=== PATIENT | male | born 1965 | race Caucasian/White ===

== ENCOUNTER 2022-10-30 12:58 | Emergency (ER) | payer BC, SELFPAY ==
[2022-10-30] VITALS (8 sets, daily range): BP systolic 133–190; BP diastolic 84–103; PULSE 54–66; RESP 16–18; TEMP 36.8; O2SAT 98–100
--- NOTE | ~2022-10-30 | CT_ITS ---
EXAMINATION: CT abdomen pelvis wo/w con DATE: 10/30/2022 14:57 INDICATION: urogram, hematuria/frothy urine, int RLQ/flank pain TECHNIQUE: Computed tomography (CT) of the abdomen and pelvis was performed without and with 100 mL O mnipaque-350 intravenous contrast. Automated exposure control and iterative reconstruction technique were employed. The dose-length product was 1280.37 mGy-cm. COMPARISON: 11/30/2018. FINDINGS: Lower thorax: Lingular and bibasilar scar/atelectasis Liver: Normal. Biliary/Gallbladder: The gallbladder is partially collapsed but otherwise normal in appearance. No bi le duct dilation. Pancreas: No mass or duct dilation. Spleen: Subcentimeter hypodensity, likely cyst or hemangioma. Adrenals:Right adrenal adenoma Kidneys: No mass, stone, or hydronephrosis. GI tract: No small or large bowel dilation. Normal appendix. Diverticulosis without diverticulitis. Mesentery/Peritoneum: No ascites, mass, or free air. Retroperitoneum: No mass. Atherosclerotic abdominal aortic and/or arterial calcifications. Pelvis: 1.2 cm possible bladder wall mass in the right lateral aspect of the inferior urinary bladder . Layering dependent debris in the bladder lumen. The left collecting system is well evaluated and n ormal. The right distal ureter was not filled with contrast but there is no distal ureteral calcifica tion. Soft Tissues: Small uncomplicated fat-containing umbilical and bilateral inguinal hernias. Bones: No acute osseous finding. IMPRESSION: Possible 1.2 cm bladder wall mass in the right lateral aspect of the inferior bladder, consider refer ral for cystoscopy. Layering dependent infectious, crystalline or hemorrhagic debris in the bladder l umen. The distal right ureter did not fill with contrast in the urographic portion of this examinatio n and is therefore incompletely evaluated, but contains no distal stone. Reviewed, dictated and finalized at location [facility]. IMPRESSION: Possible 1.2 cm bladder wall mass in the right lateral aspect of the inferior b ladder, consider referral for cystoscopy. Layering dependent infectious, kevin lline or hemorrhagic debris in the bladder lumen. The distal right ureter did n ot fill with contrast in the urographic portion of this examination and is ther efore incompletely evaluated, but contains no distal stone.
--- NOTE | 2022-10-30 13:38 | ED.MALEGU ---
HPI - Male Genitourinary General Chief complaint: Urogenital-Male Stated complaint: blood in urine Time Seen by Provider: 10/30/22 13:12 Source: patient Mode of arrival: ambulatory Limitations: no limitations History of Present Illness HPI Narrative: Patient is a 57 y/o male who presents to the ED with c/o hematuria. Patient reports having hematuria and frothy urine intermittently over the last 1 week. It has not occurred every day. Patient's did show me a picture of this. It is associated with dysuria when he notices the blood. Patient also reports having intermittent nausea, chills, subjective fever, dull right lower/right-sided abdominal pain, and an episode of right-sided flank pain last night. He has not taken anything for pain. He denies any vomiting, documented fever, diarrhea, constipation, Hx of UTI or kidney stones. Related Data Allergies Allergy/AdvReac Type Severity Reaction Status Date / Time No Known Allergies Allergy Verified 10/30/22 13:05 Review of Systems Review of Systems: CONSTITUTIONAL: See HPI. CARDIOVASCULAR: Denies chest pain. RESPIRATORY: Denies dyspnea. GASTROINTESTINAL: See HPI. GENITOURINARY: See HPI. MUSCULOSKELETAL: See HPI. NEUROLOGIC: Denies headache, numbness, or weakness. All systems reviewed & are unremarkable except as noted in HPI and below PMFSH Past Medical History Medical History Erectile dysfunction HTN (hypertension) Mixed hyperlipidemia Surgical History Surgical History No pertinent past surgical history Family History Family History Mother Family history of lung cancer Patient's mother is Father Patient's father is Social History Social History Smoking status: Heavy tobacco smoker Alcohol intake: current Exam Narrative: GENERAL: Well appearing, well-nourished, non-toxic, in no acute distress. HEAD: Normocephalic, atraumatic. NECK: Supple. No adenopathy, no masses. RESPIRATORY: Airway patent, respirations nonlabored. Clear to auscultation bilaterally, no rales, rhonchi, wheezing. CARDIOVASCULAR: Regular rate and rhythm without murmurs, rubs, or gallops. Radial pulses 2+ and equal bilaterally. ABDOMINAL: Soft, very mild tenderness in right lower/lateral abdomen, nondistended, no hepatosplenomegaly. Normoactive BS. No significant CVA tenderness to percussion. MUSCULOSKELETAL: Moves all extremities. Strength/ROM intact without gross deformities. No tenderness throughout lumbosacral region. No midline spinal tenderness. SKIN: Warm, dry, normal color. No rashes. NEURO: A&O X3. Speech clear. Cranial nerves II-XII grossly intact. Steady gait. No ataxic movements. PSYCHIATRIC: Appropriate mood and affect. Normal interaction. Course Vital Signs Vital signs: Vital Signs Temperature 98.2 F 10/30/22 13:03 Pulse Rate 61 10/30/22 13:03 Respiratory Rate 16 10/30/22 13:03 Blood Pressure 142/84 H 10/30/22 13:03 Pulse Oximetry 100 10/30/22 13:03 Temperature 98.2 F 10/30/22 13:03 Pulse Rate 57 L 10/30/22 14:15 Respiratory Rate 18 10/30/22 14:15 Blood Pressure 137/100 H 10/30/22 14:15 Pulse Oximetry 98 10/30/22 14:15 MDM - Male Genitourinary MDM Narrative Medical decision making narrative: Patient presented to ED with weeklong history of intermittent hematuria, intermittent dull abdominal pain/flank pain. No history of kidney stones or urinary issues. Vitals stable upon arrival. Patient afebrile. CBC without leukocytosis. CMP without significant abnormality, stable kidney function. UA with gross and microscopic blood, no signs of infection. CT scan of abdomen pelvis with and without contrast (urogram) showing possible right bladder wall mass with
[2022-10-30 13:46] LABS: Basophils Absolute Auto 0.1 K/mm3 (0.0-0.1); Basophils Percent Auto 1.2 % (0.2-1.2); Eosinophils Absolute Auto 0.9 K/mm3 (0-0.3); Eosinophils Percent Auto 12.7 % (0-4.4); Hematocrit 43.8 % (42.0-52.0); Hemoglobin 14.7 g/dL (14.0-18.0); Immature Granulocyte Absolute 0.02 K/mm3 (0.00-0.031); Immature Granulocyte Percent A 0.3 % (0-0.5); Lymphocytes Absolute Auto 1.99 K/mm3 (0.9-3.2); Lymphocytes Percent Auto 28.8 % (18.3-44.2); Mean Corpuscular HGB Conc 33.6 g/dl (32-36); Mean Corpuscular Hemoglobin 31.7 pg (26-34); Mean Corpuscular Volume 94.4 fl (80-100); Mean Platelet Volume 9.6 fl (7.4-10.4); Monocytes Absolute Auto 0.5 K/mm3 (0.1-0.6); Monocytes Percent Auto 6.8 % (2.6-8.5); Neutrophils Absolute Auto 3.5 K/mm3 (1.3-6.7); Neutrophils Percent Auto 50.2 % (45.5-73.1); Platelet Count Result 188 k/mm3 (150-375); Red Blood Count 4.64 M/mm3 (4.6-6.20); Red Cell Distribution Width 13.6 % (11.5-14.5); White Blood Count 6.9 K/mm3 (4.5-10.0)
[2022-10-30 13:49] LABS: Appearance Urine Clear (Clear); Bacteria Urine None Seen /hpf; Bilirubin Urine Negative (Negative); Blood Urine 2+ (Negative); Color Urine Yellow (Yellow); Glucose Urine UA Negative (Negative); Ketones Urine Negative (Negative); Leukocyte Esterase Ur Negative LEU/UL (Negative); Nitrate Urine Negative (Negative); Non Pathogenic Casts 0-2; Protein Urine Negative (Negative); RBC Urine 21-50 /hpf (0-2); Specific Grav Ur 1.014 (1.001-1.035); Squamous Epithelial Cell Urine None seen /hpf (Few); Urobilinogen Urine 0.2 mg/dL (<2.0); WBC Urine 0-5 /hpf; pH Urine 5.5 (5.0-9.0)
[2022-10-30 13:50] LABS: Add Urine Microscopic? YES
[2022-10-30 14:01] LABS: Alanine Aminotransferase 49 U/L (6-50); Albumin Level 4.5 g/dL (3.5-5.1); Alkaline Phosphatase 59 U/L (38-126); Anion Gap 6 mmol/L (8-16); Aspartate Amino Transferase 45 U/L (17-59); Bilirubin,Total 0.8 mg/dL (0.2-1.3); Blood Urea Nitrogen 14 mg/dL (9-20); Calcium 9.1 mg/dL (8.4-10.2); Carbon Dioxide 24 mmol/L (22-30); Chloride 106 mmol/L (98-107); Estimated CRCL calculation 94 ml/min; Estimated Glomerular Filt Rate > 60; Glucose 107 mg/dL (65-110); Potassium 4.5 mmol/L (3.4-5.0); Sodium 136 mmol/L (137-145)
[2022-10-30] MEDS: SODIUM CHLORIDE 0.9% IV 1,000 ML 999 ML IV CONT (14:19)
== END 2022-10-30 18:26 | disposition home or self-care (01) ==
PROVIDERS: Emergency Provider Physician Assistant; PCP Emergency Medicine
DX: D41.4 Neoplasm of uncertain behavior of bladder (principal); R31.9 Hematuria, unspecified; R10.31 Right lower quadrant pain; I10 Essential (primary) hypertension; E78.5 Hyperlipidemia, unspecified
CPT/HCPCS: 36415; 74178; 80053; 81001; 85025; 96360; 99284; J7030; Q9967

== ENCOUNTER 2022-11-03 00:43 | Day surgery (SDC) | payer BC, SELFPAY ==
[2022-11-01 11:54] VITALS: BMI 23.5
--- NOTE | 2022-11-01 12:00 | PC.NURSE ---
Report to the Outpatient Waiting Room, entrance under the green pavilion located off [facility], at time 1:00 on date 11/03/22. Planned Procedure Time: 3:00. Time changes happen often and if your time is changed the preop area will call you the afternoon before. - You and your visitor will be asked to self-screen and do not enter if you have any COVID symptoms. - Only one visitor is requested with a max of two and NO children visitors are allowed at this time. - The patient visitor may be requested to leave or wait in car when not with patient due to distancing restrictions. - A mask is optional within the hospital at this time. Patients may have clear liquids (water, carbonated beverages, clear teas, apple juice) until 3 hours prior to surgery with a maximum of 20 ounces. - No food from midnight until time of surgery Take the following medications with a SIP of water the morning of surgery: ATENOLOL DO NOT STOP ANY OF YOUR OTHER PRESCRIPTION MEDICATIONS PRIOR TO SURGERY EXCEPT THE FOLLOWING Medications to discontinue per physician: N/A Date to take last dose: N/A Please no make-up, nail kiswahili, hairspray, perfume, deodorant, or body powder the day of surgery. No jewelry (including any body piercings) or valuables the day of surgery, leave them at home. Please take a shower or bath the night before, or the morning of, surgery with an antibacterial soap. Wear comfortable, loose fitting clothing. - Jewelry must be removed prior to entering the operating room. Rings and piercings that are not removed may be cut off. - The hospital will not accept responsibility for valuables. - Please leave all valuables, including medications, at home the day of surgery. If you are going home after surgery, a licensed drivers license examiner must drive you home. - NO public transportation without another adult if you receive anesthesia. - We recommend that an adult stay with you for 24 hours following discharge. - We also recommend that you do not drive, make important decision, drink alcoholic beverages, or take any drugs that were not prescribed by your health care provider for at least 24 hours after your discharge time. Follow any additional instructions given to you from your surgeon. If you or anyone in your household have experienced Covid symptoms in the past week, please notify your surgeon or the nurse liaison at the phone number below for possible testing. Telephone instructions given to PT - SUBHA RAMOS and asked if any additional questions and then verbalized understanding. Patient advised to call surgeon office or pre surgery nurse liaison [phone] if any additional questions.
[2022-11-03] VITALS (8 sets, daily range): BP systolic 118–161; BP diastolic 78–104; PULSE 59–72; RESP 12–17; TEMP 36.5–37.2; O2SAT 98–100
--- NOTE | ~2022-11-03 | XR_ITS ---
XR retrograde pyelogram RT DATE: 11/03/2022 15:11 INDICATION: Hematuria. Right lower quadrant and flank pain. TECHNIQUE: 25.0 seconds fluoroscopy time 0.19825 mGym2 COMPARISON: 10/30/2022 CT abdomen pelvis FINDINGS: Normal caliber of the right ureter. No stricture or persistent filling defect, abnormal dil atation or hydronephrosis. Normal right renal pelvis and renal collecting structures. IMPRESSION: Negative right retrograde pyelogram Reviewed, dictated and finalized at [facility]. Reviewed, dictated and finalized at location A.
--- NOTE | 2022-11-03 05:57 | WPDHPUPDATE1 ---
History and Physical Update Update Date/Time: 11/03/22 05:57 History and Physical has been reviewed, including an updated exam of the patient. There are NO changes in the patient's condition. Risks, benefits, and alternatives have been discussed and questions answered. Patient agrees to proceed with procedure.
--- NOTE | 2022-11-03 12:46 | ECG_ITS ---
Measurements Intervals [place] Rate: 66 P: 75 WV: 184 QRS: -7 QRSD: 94 T: 62 QT: 382 QTc: 402 Interpretive Statements SINUS RHYTHM RSR' IN V1 OR V2, PROBABLY NORMAL VARIANT BORDERLINE ECG NO PREVIOUS ECG AVAILABLE FOR COMPARISON Electronically Signed On 11-03-2022 13:02:13 CDT by Yehuda Irving D.O.
[2022-11-03] MEDS: LACTATED RINGERS 1,000 ML 30 ML IV CONT (13:20)
--- NOTE | 2022-11-03 13:47 | WPDANESEPPF ---
Anes - Initial Pre Proc Eval Procedure: Operation Date: 11/03/22 15:00 Proposed Procedures p Trans Urethral Resection Bladder Tumor with Gemcitabine Instillation, - Tre Thomas MD s Cystoscopy, Right Retrograde Pyelogram - Tre Thomas MD Date/Time: 11/03/22 13:47 Surgeon: Tre Thomas MD Pre Op Diagnosis: bladder CA Patient Data Age: 57 Gender: M Height: 1.88 m Weight: 82.3 kg Last Vital Signs Temp 37.2 C 11/03/22 12:42 Pulse 72 11/03/22 12:42 Resp 16 11/03/22 12:42 BP 142/95 H 11/03/22 12:42 Pulse Ox 99 11/03/22 12:42 O2 Del Method Room Air 11/03/22 12:42 Allergies Allergy/AdvReac Type Severity Reaction Status Date / Time No Known Allergies Allergy Verified 11/03/22 13:08 Home Medications Medication Instructions Recorded Confirmed Type tramadol 50 mg tablet 50 mg PO Q6H PRN pain #15 tabs 10/30/22 11/03/22 Rx atenolol 50 mg tablet See Rx Instructions .Route 11/02/22 11/03/22 Rx .COMPLEX #90 tabs clobetasol 0.05 % topical cream 1 applic topical BID #15 grams 11/02/22 11/03/22 Rx losartan 50 mg tablet See Rx Instructions .Route 11/02/22 11/03/22 Rx .COMPLEX #90 tabs sildenafil 50 mg tablet (Viagra) See Rx Instructions .Route 11/02/22 11/03/22 Rx .COMPLEX #10 tabs sulfamethoxazole 800 1 tablet PO Q12H #14 tabs 11/02/22 11/03/22 Rx mg-trimethoprim 160 mg tablet (Bactrim DS) Patient hx anesthesia problems: none Family hx anesthesia problems: none Results Review: All pre-operative results and documents have been reviewed as part of the pre-operative evaluation. [facility] Past Medical History Medical History Erectile dysfunction HTN (hypertension) Mixed hyperlipidemia Surgical History Surgical History No pertinent past surgical history Family History Family History Mother Family history of lung cancer Patient's mother is Father Patient's father is Social History Social History Smoking packs per day: 0.5 Smoking cigarettes per day: 10.0 Years smoked: 40 Smoking pack-years: 20.00 Smoking status: Current every day smoker Tobacco type: cigarettes Alcohol intake: current Drinks per week: 20 Alcohol use details: BEER Substance use: never Substance use type: does not use Living arrangements: with family Spiritual care concerns: No Anes - Eval Final PreProcedure Day of Procedure 11/03/22 13:47 Patient weight: normal Heart: regular rate and rhythm Lungs: clear to auscultation Airway: Mallampati scale class II Neurological: alert and oriented Last oral intake: >/= 8 hours ASA classification: III Emergent: no Anesthetic plan: proceed Anesthesia type and monitoring: general GIVS and standard monitoring Results Review: All pre-operative results and documents have been reviewed as part of the pre-operative evaluation. Informed Consent: The patient's anesthetic plan and its attendant risks and benefits were discussed with the patient/family/POA. Questions were solicited and answers provided to the satisfaction of the patient/family/POA.
[2022-11-03] MEDS: ceFAZolin 2 GM/D5W 50 ML 2 GM/50 ML BAG IVPB (14:32)
[2022-11-03] MEDS: LIDOCAINE HCL 2% GEL UROJET 10 ML PKG MUCOUS MEM (14:51)
[2022-11-03] MEDS: SODIUM CHLORIDE 0.9% IV 23.7 ML, GEMCITABINE HCL 1,000 MG BLADDER ×2 (15:02)
--- NOTE | 2022-11-03 15:10 | P.OP_ITS ---
Procedure Note - Detailed Date of Procedure 11/03/22 Pre-op Diagnosis Bladder CA Post-op Diagnosis Same Procedure Performed TURBT (medium, 3-4 cm) Surgeon Tre Thomas MD Anesthesia General Description of Procedure The patient was brought to the operative suite where he is prepped and draped in a routine sterile fashion while in the dorsal lithotomy position. This is done after the uneventful administration of systemic sedation. 2% Xylocaine jelly is introduced intraurethrally and allowed to stand for an appropriate period of time. A 24F resectoscope sheath was placed in the bladder and the bladder is circumferentially inspected carefully. 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 3- 4cm and well away from the right ureteral orifice. Because CT scan of the abdomen and pelvis with and without contrast failed to opacify the distal right ureter I did obtain a right retrograde pyelogram using a 8 F bulb tip catheter. This is perfectly normal without filling defects or obstruction.. The neoplastic area is resected in its entirety with an attempt made to include detrusor muscle for pathological evaluation of invasion. The base and periphery of this resected side is cauterized with a loop electrode. The bladder is emptied and the resectoscope was removed. The patient is taken to the recovery room having tolerated this procedure well. Estimated Blood Loss 0 Drains Yes Packing No Pathology Yes Complications No immediate complications Condition Stable Disposition PACU
--- NOTE | 2022-11-03 15:13 | P.OP_ITS ---
Procedure Note - Detailed Date of Procedure 11/03/22 Pre-op Diagnosis Bladder CA Post-op Diagnosis Same Procedure Performed Gemcitabine installation Surgeon Tre Thomas MD Anesthesia General and None Description of Procedure With the patient in the supine position, a 16F Sterling catheter is placed using st erile technique. Using a protective facemask, gown and double layer of gloves Gemcitabine 2gm in 100cc saline is administered through the catheter/into the bladder. The catheter is then plugged. Patient was instructed to lie supine x20min, then to roll both the left and right x20 min. each. Total dwell time will be 60 min., after which the bladder will be drained and catheter removed. Estimated Blood Loss 0 Drains No Packing No Pathology None sent Complications No immediate complications Condition Stable
[2022-11-03] MEDS: fentaNYL CITRATE INJ (*CRX) 100 MCG/2 ML VIAL 25 MCG IV PUSH ×2 (15:31→15:38)
[2022-11-03] MEDS: SODIUM CHLORIDE 0.9% IV 50 ML BAG 150 ML IRRIGATION (16:08)
== END 2022-11-03 17:02 | disposition home or self-care (01) ==
PROVIDERS: PCP Emergency Medicine; Visit Provider Urology
PROC: 0TBB8ZZ Excision of Bladder, Via Natural or Artificial Opening Endoscopic (ICD-10-PCS; CPT 52235; principal; 2022-11-03 15:00)
PROC: (CPT 52352; 2022-11-03 15:00)
DX: C67.8 Malignant neoplasm of overlapping sites of bladder (principal); I10 Essential (primary) hypertension; E78.2 Mixed hyperlipidemia; F17.210 Nicotine dependence, cigarettes, uncomplicated
CPT/HCPCS: 52235; 51720; 74420; 88305; 88342; 93005; C1758; C1769; J0690; J2405; J2704; J3010; J7120; J9201

== ENCOUNTER 2023-01-19 08:32 | Outpatient (CLI) | payer BC, SELFPAY ==
--- NOTE | ~2023-01-19 | XR_ITS ---
EXAMINATION: XR cystogram DATE: 01/19/2023 09:08 INDICATION: Cancer of overlapping sites of bladder. TECHNIQUE: Water-soluble contrast was gravity-infused through the patient's Sterling catheter. Multiple fluoroscopic images were obtained. Fluoroscopy exposure time was 0.6 minutes. The total number of guanaco ges was 14. COMPARISON: CT abdomen and pelvis 10/30/22 FINDINGS: A Sterling catheter and a suprapubic catheter are noted in the neobladder. There is a small vo lume of contrast leakage at the prostatic urethra. There is bilateral ureteral reflux. There is mild right hydronephrosis. The calyces of left kidney are not well opacified. IMPRESSION: 1. Small volume of contrast leakage at the prosthetic urethra. 2. Bilateral ureteral reflux with mild right hydronephrosis. Reviewed, dictated and finalized at location A.
== END 2023-01-19 08:33 | disposition home or self-care (01) ==
PROVIDERS: PCP Emergency Medicine; Visit Provider Urology
DX: C67.8 Malignant neoplasm of overlapping sites of bladder (principal); N13.70 Vesicoureteral-reflux, unspecified; N13.30 Unspecified hydronephrosis
CPT/HCPCS: 51600; 74430; Q9967

== ENCOUNTER 2023-02-02 10:43 | Outpatient (CLI) | payer BC, SELFPAY ==
--- NOTE | ~2023-02-02 | XR_ITS ---
EXAMINATION: CYSTOGRAM DATE: 02/02/2023 11:17 INDICATION: Cancer of overlapping sites of the bladder post cystectomy and neobladder formation. TECHNIQUE: Initial equipment installation professional radiograph of the pelvis was performed. There was retrograde administration of Omnipaque 350 mixed with saline contrast into patient's existing Sterling catheter. Fluoroscopic guanaco ges of the pelvis were obtained including a postvoid thorascopic image. Fluoroscopy exposure time was 0.7 minutes. A total of 1 overhead radiographs and 28 fluoroscopic images were obtained. Total DAP w as 7.565 Gycm^2 FINDINGS: A Sterling catheter is present within the neobladder. The previously seen suprapubic catheter is no long er visualized. Again seen is extraluminal leakage of a small amount of contrast along the prostatic u rethra. This appears slightly decreased since the prior study. Vesicoureteral reflux seen bilaterally with some chondral stimulating in the bilateral renal collecting systems where there is mild bilater al hydronephrosis. IMPRESSION: 1. Neobladder with slight decrease in a small amount of extraluminal leakage of contrast at the pros tatic urethra. 2. Bilateral vesicoureteral reflux with mild bilateral hydronephrosis. Reviewed, dictated and finalized at location A. IMPRESSION: 1. Neobladder with slight decrease in a small amount of extraluminal leakage o f contrast at the prostatic urethra. 2. Bilateral vesicoureteral reflux with mild bilateral hydronephrosis.
== END 2023-02-02 10:44 | disposition home or self-care (01) ==
PROVIDERS: PCP Emergency Medicine; Visit Provider Urology
DX: C67.8 Malignant neoplasm of overlapping sites of bladder (principal); N13.30 Unspecified hydronephrosis
CPT/HCPCS: 51600; 74430; Q9967

== ENCOUNTER 2024-04-08 00:05 | Day surgery (SDC) | payer BC, SELFPAY ==
[2024-03-20 10:52] VITALS: BMI 20.3
[2024-04-08 09:20] VITALS: BP 124/94; PULSE 87; RESP 18; TEMP 36.3; O2SAT 100
[2024-04-08] MEDS: LACTATED RINGERS 1,000 ML 150 ML IV CONT (09:30)
--- NOTE | 2024-04-08 09:32 | WPDANESEPPF ---
Anes - Initial Pre Proc Eval Procedure: Operation Date: 04/08/24 10:30 Proposed Procedures p Esophagogastroduodenoscopy & Colonoscopy - Shayne Ro MD Date/Time: 04/08/24 09:32 Surgeon: Shayne Ro MD Pre Op Diagnosis: Diarrhea, abnormal wt. loss, Pers. hx. colon polyp Patient Data Age: 59 Gender: M Height: 1.88 m Weight: 71 kg Last Vital Signs Temp 97.4 F L 04/08/24 09:20 Pulse 87 04/08/24 09:20 Resp 18 04/08/24 09:20 BP 124/94 H 04/08/24 09:20 Pulse Ox 100 04/08/24 09:20 O2 Del Method Room Air 04/08/24 09:20 Allergies Allergy/AdvReac Type Severity Reaction Status Date / Time No Known Allergies Allergy Verified 04/08/24 09:19 Home Medications Medication Instructions Recorded Confirmed Type cholecalciferol (vitamin D3) 1,250 1,250 mcg PO WEEKLY #12 caps 09/12/23 04/08/24 Rx mcg (50,000 unit) capsule atenolol 50 mg tablet See Rx Instructions .Route 11/07/23 04/08/24 Rx .COMPLEX #90 tabs Patient hx anesthesia problems: none Family hx anesthesia problems: none Results Review: All pre-operative results and documents have been reviewed as part of the pre-operative evaluation. [facility] Past Medical History Medical History (Updated 03/08/24 @ 13:27 by Ginny Castillo MA) Abdominal bloating BRBPR (bright red blood per rectum) Diarrhea Dysuria Elevated LFTs Erectile dysfunction Essential (primary) hypertension Fatigue Hematuria History of colon polyps HTN (hypertension) Internal hemorrhoids Mixed hyperlipidemia Nausea Nicotine dependence, unspecified, uncomplicated Numerous moles Other hyperlipidemia Pure hyperglyceridemia Right lower quadrant abdominal pain Screening PSA (prostate specific antigen) Vitamin D deficiency Surgical History Surgical History (Updated 03/08/24 @ 13:27 by Ginny Castillo MA) Hx of total cystectomy No pertinent past surgical history Family History Family History Mother Family history of lung cancer Patient's mother is Father Patient's father is Social History Social History Smoking packs per day: 1 Smoking cigarettes per day: 20.0 Years smoked: 40 Smoking pack-years: 40.00 Smoking status: Current every day smoker Tobacco type: cigarettes Alcohol intake: current Drinks per week: 2 Alcohol use details: STOPPED DRINKING BEER, DRINKS WINE OR SHOTS OCCASIONALLY Substance use: never Substance use type: does not use Lack of Transportation: No Lack of Food: Never True Current Housing: I Have Housing Concerned About Future Housing: No Difficulty Paying Gas/Electric Bills: No Difficulty Paying for Meds: No Currently Unemployed: No Education: Associate Degree Difficulty w/ Childcare or Family Care: No Living arrangements: with family Spiritual care concerns: No Anes - Eval Final PreProcedure Day of Procedure 04/08/24 09:32 Patient weight: normal Heart: regular rate and rhythm Lungs: clear to auscultation Airway: Mallampati scale class II Neurological: alert and oriented Last oral intake: >/= 8 hours ASA classification: III Emergent: no Anesthetic plan: proceed Anesthesia type and monitoring: general GIVS and standard monitoring Results Review: All pre-operative results and documents have been reviewed as part of the pre-operative evaluation. Informed Consent: The patient's anesthetic plan and its attendant risks and benefits were discussed with the patient/family/POA. Questions were solicited and answers provided to the satisfaction of the patient/family/POA.
--- NOTE | 2024-04-08 09:39 | PM.HPGS ---
History of Present Illness History of Present Illness Consent: Risks, benefits, and alternatives have been discussed and questions answered. Patient agrees to proceed with procedure. Chief complaint: Diarrhea, abnormal wt. loss, Pers. hx. colon polyp Narrative: John Beal is a 59 year old male with past medical surgical history of bladder cancer s/p radical cystoprostatectomy with neobladder creation using small bowel in 2021, Frequent UTIs multiple times a year for which he is on abx, he has been having diarrhea but last 3-4 weeks doing much better. Serology for celiac negative, no EPI. Also had nausea but that has improved, last colonoscopy 2018 with polyp. Review of Systems Review of Systems: All systems reviewed & are unremarkable except as noted in HPI and below PMFSH Past Medical History Medical History (Updated 03/08/24 @ 13:27 by Ginny Castillo MA) Abdominal bloating BRBPR (bright red blood per rectum) Diarrhea Dysuria Elevated LFTs Erectile dysfunction Essential (primary) hypertension Fatigue Hematuria History of colon polyps HTN (hypertension) Internal hemorrhoids Mixed hyperlipidemia Nausea Nicotine dependence, unspecified, uncomplicated Numerous moles Other hyperlipidemia Pure hyperglyceridemia Right lower quadrant abdominal pain Screening PSA (prostate specific antigen) Vitamin D deficiency Surgical History Surgical History (Updated 03/08/24 @ 13:27 by Ginny Castillo MA) Hx of total cystectomy No pertinent past surgical history Family History Family History Mother Family history of lung cancer Patient's mother is Father Patient's father is Social History Social History Smoking packs per day: 1 Smoking cigarettes per day: 20.0 Years smoked: 40 Smoking pack-years: 40.00 Smoking status: Current every day smoker Tobacco type: cigarettes Alcohol intake: current Drinks per week: 2 Alcohol use details: STOPPED DRINKING BEER, DRINKS WINE OR SHOTS OCCASIONALLY Substance use: never Substance use type: does not use Lack of Transportation: No Lack of Food: Never True Current Housing: I Have Housing Concerned About Future Housing: No Difficulty Paying Gas/Electric Bills: No Difficulty Paying for Meds: No Currently Unemployed: No Education: Associate Degree Difficulty w/ Childcare or Family Care: No Living arrangements: with family Spiritual care concerns: No Meds Home Medications and Allergies Home Medications Medication Instructions Recorded Confirmed Type cholecalciferol (vitamin D3) 1,250 1,250 mcg PO WEEKLY #12 caps 09/12/23 04/08/24 Rx mcg (50,000 unit) capsule atenolol 50 mg tablet See Rx Instructions .Route 11/07/23 04/08/24 Rx .COMPLEX #90 tabs Allergies Allergy/AdvReac Type Severity Reaction Status Date / Time No Known Allergies Allergy Verified 04/08/24 09:19 Vital Signs Vital Signs - 24 hr 04/08/24 09:20 Temperature 97.4 F L Pulse Rate 87 Respiratory Rate 18 Blood Pressure 124/94 H Pulse Oximetry 100 Oxygen Delivery Room Air Exam Const: General: comfortable and no acute distress HENMT: Face/Nose/Sinus: Normal nares present Eyes: General: appearance normal, both eyes and all related structures Neck: Neck: no JVD Resp: Auscultation: clear to auscultation bilaterally Cardio: Rate: regular rate Rhythm: regular rhythm GI: Inspection: non-distended GI Palp: Yes Soft to palpation Skin: General skin exam: normal color Neuro: General: gait normal Speech: normal speech Extrem: General: normal to inspection Psych: Mental Status: mental status grossly normal Assessment and Plan Assessment and plan (1) History of colon polyps: Code(s): Z86.010 - Personal history of colonic polyps Status: Acute
--- NOTE | 2024-04-08 09:54 | SUR.OPER ---
EGD end time: 948, Colonoscopy start time: 952
[2024-04-08 10:06] VITALS: BP 111/81; PULSE 72; RESP 30; O2SAT 100
[2024-04-08 10:16] VITALS: BP 110/77; PULSE 73; RESP 22; O2SAT 99
[2024-04-08 10:26] VITALS: BP 126/89; PULSE 67; RESP 20; O2SAT 100
== END 2024-04-08 10:35 | disposition home or self-care (01) ==
PROVIDERS: PCP Emergency Medicine; Referring Provider Nurse Practitioner Family; Visit Provider Internal Medicine Gastroenterology
PROC: 0DJ08ZZ Inspection of Upper Intestinal Tract, Via Natural or Artificial Opening Endoscopic (ICD-10-PCS; CPT 43235; principal; 2024-04-08 10:30)
DX: D12.4 Benign neoplasm of descending colon (principal); D12.0 Benign neoplasm of cecum; K64.8 Other hemorrhoids; I10 Essential (primary) hypertension; E78.49 Other hyperlipidemia; R73.9 Hyperglycemia, unspecified; E55.9 Vitamin D deficiency, unspecified; N52.9 Male erectile dysfunction, unspecified; F17.210 Nicotine dependence, cigarettes, uncomplicated; Z98.890 Other specified postprocedural states; Z85.51 Personal history of malignant neoplasm of bladder; Z80.1 Family history of malignant neoplasm of trachea, bronchus and lung
CPT/HCPCS: 43239; 45380; 45385; 88305; J2704; J7120

== ENCOUNTER 2024-05-13 07:44 | Outpatient (CLI) | payer BC, SELFPAY ==
--- NOTE | ~2024-05-13 | US_ITS ---
Limited Abdominal Sonogram: Real-time sonographic imaging of the right upper quadrant was performed. Clinical History: Abnormal blood chemistry findings Findings: The liver appears normal with no evidence of bile duct dilatation. There is a 9 mm echogen ic mass in the right hepatic lobe, most likely hemangioma. Main portal vein demonstrates normal direc tion of flow. The gallbladder is well distended, and appears normal with no evidence of gallstone or wall thickening. The common bile duct measures 3 mm. The visualized pancreas, aorta, and IVC are unr emarkable. Impression: 9 mm echogenic right hepatic lobe mass, most likely small hemangioma. Consider pre and postcontrast M R to attempt to more definitively characterize this lesion. Reviewed, dictated and finalized at location M. Impression: 9 mm echogenic right hepatic lobe mass, most likely small hemangioma. Consider pre and postcontrast MR to attempt to more definitively characterize this sage mejia
== END 2024-05-13 07:45 | disposition home or self-care (01) ==
PROVIDERS: PCP Emergency Medicine; Visit Provider Nurse Practitioner Family
DX: R16.0 Hepatomegaly, not elsewhere classified (principal); R79.89 Other specified abnormal findings of blood chemistry
CPT/HCPCS: 76705

== ENCOUNTER 2024-06-04 06:48 | Outpatient (CLI) | payer BC, SELFPAY ==
--- NOTE | ~2024-06-04 | MR_ITS ---
EXAMINATION: MR abdomen wo/w con DATE: 06/04/2024 07:41 INDICATION: Liver disease, unspecified. Liver mass. TECHNIQUE: Magnetic resonance imaging (MRI) of the abdomen was performed without and with 15 mL Multi Nicole intravenous contrast. COMPARISON: Abdomen ultrasound 05/13/2024, 11/30/18 FINDINGS: There is a 9 mm hyperenhancing mass in the liver without washout. The spleen, gallbladder, pancreas, adrenal glands, and kidneys are normal. Partially visualized is a neobladder. There are no pathologic ally enlarged lymph nodes. There is no ascites. IMPRESSION: 1. 9 mm hyperenhancing liver mass, most likely a hemangioma or focal nodular hyperplasia. Metastatic disease cannot be excluded. Consider abdomen MRI without and with contrast in 6 months. Reviewed, dictated and finalized at location A. IMPRESSION: 1. 9 mm hyperenhancing liver mass, most likely a hemangioma or focal nodular hy perplasia. Metastatic disease cannot be excluded. Consider abdomen MRI without and with contrast in 6 months.
== END 2024-06-04 06:49 | disposition home or self-care (01) ==
PROVIDERS: PCP Emergency Medicine; Visit Provider Nurse Practitioner Family
DX: R16.0 Hepatomegaly, not elsewhere classified (principal); R79.89 Other specified abnormal findings of blood chemistry; R93.2 Abnormal findings on diagnostic imaging of liver and biliary tract
CPT/HCPCS: 74183; A9577

== ENCOUNTER 2025-03-09 20:17 | Emergency (ER) | payer BC, SELFPAY ==
[2025-03-09] VITALS (9 sets, daily range): BP systolic 123; BP diastolic 90; PULSE 80–97; RESP 13–19; TEMP 36.9; O2SAT 96–100
--- NOTE | ~2025-03-09 | XR_ITS ---
EXAM: XR forearm LT 2V DATE: 03/09/2025 20:58 HISTORY: fall/MEDIAL CONTUSION/PT DENIES ANY PAIN . COMPARISON: None available. FINDINGS: Normal mineralization. No fracture or dislocation. No lytic or blastic lesion. Joint space s are maintained. Minimal olecranon enthesopathy. No erosion or periosteal change. Soft tissues withi n normal limits. IMPRESSION: No acute osseous finding in the left forearm. Reviewed, dictated and finalized at location K.
--- NOTE | ~2025-03-09 | XR_ITS ---
EXAM: XR ankle LT min 3V DATE: 03/09/2025 20:58 HISTORY: fall/LATERAL CONTUSION/PT DENIES ANY PAIN . COMPARISON: None available. FINDINGS: Normal mineralization. No fracture or dislocation. 6 mm lytic focus in the distal tibia. M ild scattered degenerative change. Mild Achilles and plantar enthesopathy. Chronic ossification/enthe sopathy along the short segment portion of the syndesmosis. No erosion or periosteal change. Soft tis sues within normal limits. IMPRESSION: No acute fracture or dislocation in the left ankle. 6 mm lytic lesion in the distal tibia, correlate for clinical history of multiple myeloma or metastat ic disease. Consider bone scanning.. Reviewed, dictated and finalized at location K. IMPRESSION: No acute fracture or dislocation in the left ankle. 6 mm lytic lesion in the distal tibia, correlate for clinical history of multip le myeloma or metastatic disease. Consider bone scanning..
--- NOTE | ~2025-03-09 | CT_ITS ---
EXAMINATION: CT chest abdomen pelvis w con DATE: 03/10/2025 07:41 CDT INDICATION: Status post fall from height. TECHNIQUE: Computed tomography (CT) of the chest, abdomen, and pelvis was performed with 100 cc Omnip aque 350 intravenous contrast. The dose-length product was 463.84 mGy-cm. Automated exposure control and iterative reconstruction technique were employed. COMPARISON: None FINDINGS: CHEST CT: No significant pleural or pericardial effusion. Heart size normal. No significant vascular abnormalit y. No lymphadenopathy. No focal airspace consolidation. There is a pleural-based nodule in the left l ower lobe posteriorly measuring 5 mm. No endobronchial lesions. No pneumothorax. There is emphysema. ABDOMEN/PELVIS CT: Fatty infiltration of the liver. The spleen, pancreas, adrenal glands are unremarkable. There is bila teral hydronephrosis with ectopic insertion of the ureters. The bladder is distended with bladder div erticulum at the dome of the bladder where the ureters insert. There are calcifications at this level , possibly ureteral and bladder stones. There is mild urothelial enhancement. Cannot exclude ascendin g urinary tract infection. Bladder is distended. Moderate mid thoracic spondylosis with accentuated k yphosis. Moderate spondylosis at L5-S1. IMPRESSION: 1. 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 Cannot exclu de ascending urinary tract infection. 2: No acute abnormality of the chest, abdomen or pelvis. Reviewed, dictated and finalized at location B. IMPRESSION: 1. Bilateral hydronephrosis with urothelial enhancement and ectopic insertion o f the ureters near the dome of the bladder adjacent to an irregular shaped dive rticulum which contains stones. Cannot exclude ascending urinary tract infectio n. 2: No acute abnormality of the chest, abdomen or pelvis.
--- OUTSIDE RECORDS SUMMARY | 2025-03-09 20:18 | XMS_ITS | Clinical Summary ---
Author Organization [facility] Address [address] [place] [address] Care Team Providers Care Tong Carrier Name Role Phone None, Provider MD Primary Care Provider Unavaila ble Allergies No known active allergies Medications atenolol (TENORMIN) 50 MG tablet Take 1 tablet (50 mg total) by mouth daily. Active apixaban (ELIQUIS) 2.5 MG tablet Take 1 tablet (2.5 mg total) by mouth 2 (two) times daily. Active clobetasol (TEMOVATE) 0.05 % cream Apply topically 2 (two) times daily. Active Active Problems Problem Noted Date Diagnosed Date History of bladder cancer 02/09/2023 Bacteremia due to Pseudomonas 02/08/2023 Complicated UTI (urinary tract infection) 2022 Family History Medical History Relation Comments Cancer Brother 1 Cancer Father Cancer Mother Cancer Sister Relation Status Comments Brother 1 Brother 2 Alive Brother 3 Alive Daughter Alive Father Mother Sister Son 1 Alive Son 2 Alive Social History Tobacco Use Types Packs/Day Years Used Date Smoking Tobacco: Former Cigarettes Smokeless Tobacco: Never Tobacco Cessation:Counseling Given: No Alcohol Use Standard Drinks/Week Comments Not Currently 0 (1 standard drink = 0.6 oz pur e alcohol) Humiliation, Afraid, Rape, and Kick questionnair e Answer Date Recorded Within the last year, have y ou been afraid of your partner or ex-partner? No 01/25/2023 Within the last year, have y ou been humiliated or emotionally abused in other ways by your partner or ex-partner? No Within the last year, have y ou been kicked, hit, slapped, or otherwise physically hurt by your partner or ex-partner? No 01/25/2023 Within the last year, have y ou been raped or forced to have any kind of sexual activity by your partner or ex-partner? No 01/25/2023 Overall Financial Resource Strain (CARDIA) Answe r Date Recorded How hard is it for you to pa y for the very basics like food, housing, medical care, and heating? Not hard at all 01/25/2023 PHQ-2 Answer Date Recorded Patient Health Questionnaire-2 Score 0 02/08/2023 [facility] Occupat ional Health - Occupational Stress Questionnaire Answer Date Recorded Do you feel stress - tense, restless, nervous, or anxious, or unable to sleep at night because your mind is troubled all the time - these days? Not at all 01/25/2023 Exercise Vital Sign Answer Date Recorde d On average, how many days pe r week do you engage in moderate to strenuous exercise (like a brisk walk)? 0 days 01/25/2023 On average, how many minutes do you engage in exercise at this level? 0 min 01/25/2023 Hunger Vital Sign Answer Date Recorded Within the past 12 months, y ou worried that your food would run out before you got the money to buy more. Never true 01/26/20 23 Within the past 12 months, t he food you bought just didn't last and you didn't have money to get more. Never true 01/25/2023 PRAPARE - Transportation Answer Date Re corded In the past 12 months, has l ack of transportation kept you from medical appointments or from getting medications? No 01/12 In the past 12 months, has l ack of transportation kept you from meetings, work, or from getting things needed for daily living? No 01/25/2023 Housing Stability Vital Sign Answer Chris e Recorded In the last 12 months, was t here a time when you were not able to pay the mortgage or rent on time? No 01/25/2023 In the last 12 months, how many places have you lived? 1 01/25/2023 In the last 12 months, was t here a time when you did not have a steady place to sleep or slept in a group home (including now)? No 01/25/2023 Sex and Gender Information Value Date Recorded Sex Assigned at Not on file Legal Sex Male 9:15 PM CDT Gender Identity Not on file Sexual Orientation Not on file Last Filed Vital Signs Vital Sign Reading Time Taken Comments Blood Pressure 112/85 01/27/2023 4:39 PM CDT Pulse 81 01/27/2023 4:39 PM CDT Temperature 37 C (98.6 F) 01/27/2023 4:39 PM CDT Respiratory Rate 18 01/27/2023 4:39 PM CDT Oxygen Saturation 100% 01/27/2023 4:39 PM CDT Inhaled Oxygen Concentration - - Weight 77.6 kg (171 lb) 02/08/2023 11:04 AM CDT Height 188 cm (6' 2) 02/08/2023 11:04 AM CDT Body Mass Index 21.96 02/08/2023 11:04 AM CDT Plan of Treatment Health Maintenance Due Date Last Done Comments Colorectal Cancer Screening Colonoscopy (10 Years) 1966 Annual Physical 1969 Hepatitis C 01/29/1984 DTaP, Tdap and Td Vaccines ( 1 - Tdap) 1985 Pneumococcal Vaccine: 50+ Ye ars (1 of 1 - PCV) 01/29/2016 Zoster Vaccines (1 of 2) 01/29/2016 COVID-19 Vaccine ( - 2023-2 5 season) 2024 Meningococcal B Vaccine Aged Out No l onger eligible based on patient's age to complete this topic Meningococcal Vaccine Aged Out No claus sunny eligible based on patient's age to complete this topic RSV Immunizations Under 20 Months Aged Out No longer eligible based on patient's age to complete this topic Goals Goal Patient Goal Type Associated Problems Recent Progress Patient-Stated? Author Family - family caregiver with be involved in care transitions and discharge planning Lifestyle No Monik Lujan, TEMPORARY OFFICE ASSISTANTcustom[place] [address] [facility] Advance Directives * Full Code (Latest Code Status on File) Date Activated Date Inactivated Comments 01/25/2023 2:20 AM 01/27/2023 10:02 PM Care Teams Tong Carrier Relationship Specialty Start Date End Date None, Provider, MD PCP - General UNKNOWN PHYSICIAN SPECIALTY 01/24/23
--- OUTSIDE RECORDS SUMMARY | 2025-03-09 20:18 | XMS_ITS | Clinical Summary ---
Author Organization [facility] Address [address] [place] [address] Care Team Providers Care Granite Block Paver Name Role Phone Glynn Cruz MD Primary Care Provide r Cr Holguin MD Unavailable [phone] Allergies No known active allergies Medications atenoloL (TENORMIN) 50 mg tablet Take 1 tablet (50 mg total) by mouth daily Active apixaban (ELIQUIS) 2.5 mg tabletIndication s:VTE Prophylaxis Take 1 tablet (2.5 mg total) by mouth 2 (two) times a day 60 tablet 3 Active acetaminophen 500 mg capsuleIndicatio ns:Pain Take 2 capsules (1,000 mg total) by mouth every 6 (six) hours 30 tablet 3 Active losartan (COZAAR) 50 mg tablet Take 1 tablet (50 mg total) by mouth daily 01/25/20 23 Discontinu ed(Other) Active Problems Problem Noted Date Diagnosed Date Cancer of lateral wall of urinary bladder 2022 Cancer of overlapping sites of bladder 3 Surgical History Surgery Date Site/Laterality Comments TRANSURETHRAL RESECTION OF BLADDER TUMOR Medical History Medical History Date Comments Tobacco use HTN (hypertension) A-fib (HCC) last episode pavan und 10 years ago, controlled on beta leisa Internal hemorrhoid Social History Tobacco Use Types Packs/Day Years Used Date Smoking Tobacco: Every Day Cigarettes OASIS D0700: Social Isolation Answer Da te Recorded Frequency of experiencing loneliness or isolatio n Never 02/10/2023 OASIS A1250: Transportation Answer Date Recorded Lack of Transportation (Medical) No 02/10/2023 Lack of Transportation (Non-Medical) No 02/10/2023 Patient Unable or Declines to Respond No 02/10/2023 OASIS B1300: Health Literacy Answer Chris e Recorded Frequency of needing help to read materials from doctor or pharmacy Never 02/10/2023 Social Connection and Isolat ion Panel [NHANES] Answer Date Recorded In a typical week, how many times do you talk on the phone with family, friends, or neighbors? More than three times a week 12/27/2022 How often do you get togethe r with friends or relatives? Twice a week 12/27/2022 How often do you attend chur ch or anglican services? Never 12/27/2022 Do you belong to any clubs o r organizations such as adventism groups, unions, fraternal or athletic groups, or school groups? No 12/27/2022 How often do you attend meet ings of the clubs or organizations you belong to? Never 12/27/2022 Are you , , di vorced, , never , or living with a partner? 12/27/2022 AUDIT-C Answer Date Recorded Q1: How often do you have a drink containing alcohol? 4 or more times a week 12/19/2022 Q2: How many drinks containi ng alcohol do you have on a typical day when you are drinking? 5 or 6 Q3: How often do you have si x or more drinks on one occasion? Weekly 12/19/2022 Overall Financial Resource Strain (CARDIA) Answe r Date Recorded How hard is it for you to pa y for the very basics like food, housing, medical care, and heating? Not hard at all 12/27/2022 PRAPARE - Transportation Answer Date Re corded In the past 12 months, has l ack of transportation kept you from medical appointments or from getting medications? No 12/12 In the past 12 months, has l ack of transportation kept you from meetings, work, or from getting things needed for daily living? No 12/27/2022 Personal Safety Answer Date Recorded Have you ever been in or are you currently in a harmful physical or emotional relationship or is someone making you feel afraid or unsafe? Denies 12/26/2022 Sex and Gender Information Value Date Recorded Sex Assigned at Not on file Legal Sex Male 6:51 AM CDT Gender Identity Not on file Sexual Orientation Not on file Obstetrics History Last Filed Vital Signs Vital Sign Reading Time Taken Comments Blood Pressure 120/88 02/10/2023 4:29 PM CDT Pulse 78 02/10/2023 4:29 PM CDT Temperature 36.4 C (97.5 F) 02/10/2023 4:29 PM CDT Respiratory Rate 16 02/10/2023 4:29 PM CDT Oxygen Saturation 100% 02/10/2023 4:29 PM CDT Inhaled Oxygen Concentration - - Weight 75.8 kg (167 lb) 02/10/2023 4:29 PM CDT Height 188 cm (6' 2) 02/10/2023 4:29 PM CDT Body Mass Index 21.44 02/10/2023 4:29 PM CDT Plan of Treatment Health Maintenance Due Date Last Done Comments Colon Cancer Screening-Colonoscopy 1966 Depression Screening 1966 Hepatitis C Screening 1966 Prostate Cancer Screening-PSA 1966 DTaP/Tdap/Td Vaccine (1 - Tdap) 1977 Hepatitis B Screening 01/29/1984 Regular Well Visit/Exam 18-64 01/29/1984 Pneumococcal vaccine <65 (1 of 2 - PCV) 1985 Zoster Vaccine (1 of 2) 01/29/2016 Influenza Vaccine (#1) 2025 Medical Devices Implanted Type Area Hotel Staff Member Device Identifier Shelf Expiration Date Model / Serial / Lot [employer] Marito 7fr 80cm Open Tip Luer Lock Adapter Guidewire Graduate Straight Latex Free 160-210 - [id number] Implanted:Qty: 2 on 12/26/2022 by Cr Holguin MD at [facility] Stent Bilateral: Ureter [employer] Marito 09/07/2026 160-210 / / [id number] [employer] Weck Hem-O-Tata Ligate Nonabsorbable Cartridge Large Chevron Heart Latex Free [id number] - [id number] Implanted:Qty: 1 on 12/26/2022 by Cr Holguin MD at [facility] N/A: Pelvis [employer] [id number] / / [employer] Weck Hem-O-Tata Ligate Nonabsorbable Cartridge Large Chevron Heart Latex Free [id number] - [id number] Implanted:Qty: 1 on 12/26/2022 by Cr Holguin MD at [facility] N/A: Pelvis [employer] [id number] / / Insurance [employer] CHOICE [employer] ANTHEM ACCESS CHOICE Advance Directives For more information, please contact: [phone] * Full Code (Latest Code Status on File) Date Activated Date Inactivated Comments 12/26/2022 6:44 PM 12/31/2022 5:01 PM Care Teams Granite Block Paver Relationship Specialty Start Date End Date Glynn Cruz MD [address] [place] [address] PCP - General Emergency Medicine 12/19/22 [place] [address] [place] [address] Consulting Physician Urology 12/31/22
--- OUTSIDE RECORDS SUMMARY | 2025-03-09 20:18 | XMS_ITS | Referral Summary ---
Author Organization [facility] Address [address] [place] [address] Care Team Providers Care Credit Associate Name Role Phone Glynn Cruz MD Primary Care Provide r Cr Holguin MD Unavailable [phone] Allergies No known active allergies Medications [...] Cancer of overlapping sites of bladder 3 Social History Tobacco Use Types Packs/Day Years [...] often do you attend chur ch or islam services? Never 12/27/2022 Do you belong to any clubs o r organizations such as denominational groups, unions, fraternal or athletic groups, or [...] 02/10/2023 4:29 PM CDT Plan of Treatment Not on file Medical Devices Implanted Type Area Lumber Tallier Device Identifier Shelf Expiration Date Model / Serial / Lot [employer] Marito 7fr 80cm Open Tip Luer Lock Adapter Guidewire Graduate Straight Latex Free 160-210 - [id number] Implanted:Qty: 2 on 12/26/2022 by Cr Holguin MD at [facility] Stent Bilateral: Ureter [employer] Marito 09/07/2026 160-210 / / [id number] [employer] Weck Hem-O-Tata Ligate Nonabsorbable Cartridge Large Chevron Heart Latex Free [id number] - [id number] Implanted:Qty: 1 on 12/26/2022 by Cr Holguin MD at [facility] N/A: Pelvis [employer] [id number] / / [employer] Weck Hem-O-Tata Ligate Nonabsorbable Cartridge Large Chevron Heart Latex Free [id number] - [id number] Implanted:Qty: 1 on 12/26/2022 by Cr Holguin MD at [facility] N/A: [employer] [id number] / / Insurance [facility] ACC[facility] CHOICE [employer] ACCESS CHOICE [employer] ACCESS CHOICE Advance Directives For more information, please contact: [phone] * Full Code (Latest Code Status on File) Date Activated Date Inactivated Comments 12/26/2022 6:44 PM 12/31/2022 5:01 PM Care Teams Credit Associate Relationship Specialty Start Date End Date Glynn Cruz MD [address] [place] [address] PCP - General Emergency Medicine 12/19/22 [place] [address] [place] [address] Consulting Physician Urology 12/31/22
--- OUTSIDE RECORDS SUMMARY | 2025-03-09 20:51 | XMS_ITS | Referral Summary ---
Author Organization [facility] Address [address] [place] [address] Care Team Providers Care Industrial Aerial Installer Name Role Phone Glynn Cruz MD Primary Care Provide r Cr Holguin MD Unavailable [phone] Allergies No known active allergies Medications [...] often do you attend chur ch or protestant services? Never 12/27/2022 Do you belong to any clubs o r organizations such as confucianist groups, unions, fraternal or athletic groups, or [...] on file Medical Devices Implanted Type Area Clinical Laboratory Medical Director Device Identifier Shelf Expiration Date Model / Serial / Lot [employer] Marito 7fr 80cm Open Tip Luer Lock Adapter Guidewire Graduate Straight Latex Free 160-210 - [id number] Implanted:Qty: 2 on 12/26/2022 by Cr Holguin MD at [facility] Stent Bilateral: Ureter [employer] Marito 09/07/2026 160-210 / / [id number] [employer] Weck Hem-O-Tata Ligate Nonabsorbable Cartridge Large Chevron Heart Latex Free [id number] - [id number] Implanted:Qty: 1 on 12/26/2022 by Cr Holguin MD at [facility] N/A: Pel[employer] [id number] / / [employer] Weck Hem-O-Tata Ligate Nonabsorbable Cartridge Large Chevron Heart Latex Free [id number] - [id number] Implanted:Qty: 1 on 12/26/2022 by Cr Holguin MD at [facility] N/A: Pel[employer] [id number] / / Insurance [facility] ACCESS CHOICE ANTH[employer] ACCESS CHOICE [employer] ACCESS CHOICE Advance Directives For more information, please contact: [phone] * Full Code (Latest Code Status on File) Date Activated Date Inactivated Comments 12/26/2022 6:44 PM 12/31/2022 5:01 PM Care Teams Industrial Aerial Installer Relationship Specialty Start Date End Date Glynn Cruz MD [address] [place] [address] PCP - General Emergency Medicine 12/19/22 [place] [address] [place] [address] Consulting Physician Urology 12/31/22
--- OUTSIDE RECORDS SUMMARY | 2025-03-09 20:51 | XMS_ITS | Clinical Summary ---
Author Organization [facility] Address [address] [place] [address] Care Team Providers Care Mobile Battery Technician Name Role Phone None, Provider MD Primary [...] Recorded Patient Health Questionnaire-2 Score 0 02/08/2023 [facility] Occupat ional Health - Occupational Stress [...] place to sleep or slept in a retirement (including now)? No 01/25/2023 Sex and Gender [...] and discharge planning Lifestyle No Monik Lujan, SALESPERSON [place] [address] [facility] Advance Directives * Full Code (Latest Code Status on File) Date Activated Date Inactivated Comments 01/25/2023 2:20 AM 01/27/2023 10:02 PM Care Teams Mobile Battery Technician Relationship Specialty Start Date End Date None, Provider, MD PCP - General UNKNOWN PHYSICIAN SPECIALTY 01/24/23
--- OUTSIDE RECORDS SUMMARY | 2025-03-09 20:51 | XMS_ITS | Clinical Summary ---
Author Organization [facility] Address [address] [place] [address] Care Team Providers Care Sawmill Production Worker Name Role Phone Glynn Cruz MD Primary Care Provide r Cr Holguin MD Unavailable [phone] Allergies No known active allergies Medications [...] often do you attend chur ch or buddhist services? Never 12/27/2022 Do you belong to any clubs o r organizations such as quaker groups, unions, fraternal or athletic groups, or [...] (#1) 2025 Medical Devices Implanted Type Area Tin Pourer Device Identifier Shelf Expiration Date Model / Serial / Lot [employer] Marito 7fr 80cm Open Tip Luer Lock Adapter Guidewire Graduate Straight Latex Free 160-210 - [id number] Implanted:Qty: 2 on 12/26/2022 by Cr Holguin MD at [facility] Stent Bilateral: Ureter [employer] Marito 09/07/2026 160-210 / / [id number] [employer] Weck Hem-O-Tata Ligate Nonabsorbable Cartridge Large Chevron Heart Latex Free [id number] - [id number] Implanted:Qty: 1 on 12/26/2022 by Cr Holguin MD at [facility] N/A: Pelvis Teleflex [employer] Inc [id number] / / Teleflex [employer] Inc Weck Hem-O-Tata Ligate Nonabsorbable Cartridge Large Chevron Heart Latex Free [id number] - [id number] Implanted:Qty: 1 on 12/26/2022 by Cr Holguin MD at [facility] N/A: Pelvis [employer] Inc [id number] / / Insurance [employer] CHOICE [employer] ANTHEM ACCESS CHOICE Advance Directives For more information, please contact: [phone] * Full Code (Latest Code Status on File) Date Activated Date Inactivated Comments 12/26/2022 6:44 PM 12/31/2022 5:01 PM Care Teams Sawmill Production Worker Relationship Specialty Start Date End Date Glynn Cruz MD [address] [place] [address] PCP - General Emergency Medicine 12/19/22 [place] [address] [place] [address] Consulting Physician Urology 12/31/22
[2025-03-09 20:53] LABS: Hematocrit 43.6 % (42.0-52.0); Hemoglobin 14.4 g/dL (14.0-18.0); Immature Granulocyte Percent A 0.2 % (0-0.5); Lymphocytes Absolute Auto 4.00 K/mm3 (0.9-3.2); Mean Corpuscular HGB Conc 33.0 g/dl (32-36); Mean Corpuscular Hemoglobin 33.5 pg (26-34); Mean Corpuscular Volume 101.4 fl (80-100); Nucleated Red Blood Cells Absolute Auto 0.000 K/mm3 (0.0-0.012); Nucleated Red Blood Cells Perc 0.0 % (0.0-0.2); Platelet Count Result 158 k/mm3 (150-375); Red Blood Count 4.30 M/mm3 (4.6-6.20); White Blood Count 8.6 K/mm3 (4.5-10.0)
[2025-03-09 21:06] LABS: INR 1.1; Prothrombin Time 13.8 Seconds (11.1-14.7)
[2025-03-09 21:07] LABS: Partial Thromboplastin Time 23.9 Seconds (22.3-36.8)
[2025-03-09 21:25] LABS: Alanine Aminotransferase 64 U/L (6-50); Albumin Level 4.4 g/dL (3.5-5.1); Alkaline Phosphatase 90 U/L (38-126); Anion Gap 11 mmol/L (4-12); Aspartate Amino Transferase 69 U/L (17-59); Bilirubin,Total 0.7 mg/dL (0.2-1.3); Blood Urea Nitrogen 13 mg/dL (9-20); Calcium 9.5 mg/dL (8.4-10.2); Carbon Dioxide 14 mmol/L (22-30); Chloride 110 mmol/L (98-107); Estimated CRCL calculation 61 ml/min; Estimated Glomerular Filt Rate > 60; Glucose 129 mg/dL (65-110); Potassium 3.1 mmol/L (3.4-5.0); Sodium 135 mmol/L (137-145); Total Protein 8.2 g/dL (6.3-8.2)
[2025-03-09] MEDS: ONDANSETRON INJ 4 MG/2 ML VIAL IV PUSH (21:51)
[2025-03-09] MEDS: MORPHINE SULFATE (*CRX) 4 MG/ML INJ IV PUSH (21:51)
[2025-03-09 21:54] LABS: Magnesium 2.1 mg/dL (1.6-2.3)
--- NOTE | 2025-03-09 21:56 | ED_ITS ---
HPI - Fall General Chief Complaint: Fall Stated Complaint: fall, thinks ribs are broken Time Seen by Provider: 03/09/25 20:34 Source: patient Mode of arrival: ambulatory Limitations: no limitations History of Present Illness HPI Narrative: This is a 60 year old male that presents to the ER after a fall. Reports he was standing on top of a cooler and fell backwards onto a desk. Reports landing on the left side of his back. He did not hit his head or lose consciousness. Reports left rib pain/back pain. He is not on a blood thinner. Denies vision changes, vomiting, numbness, weakness. Related Data Allergies Allergy/AdvReac Type Severity Reaction Status Date / Time No Known Allergies Allergy Verified 03/09/25 20:47 Review of Systems 2 Review of Systems: All systems reviewed & are unremarkable except as noted in HPI and below PMFSH Past Medical History Medical History Elevated ferritin Low ceruloplasmin level Liver lesion, right lobe Elevated LFTs History of colon polyps Nausea Diarrhea Fatigue Screening PSA (prostate specific antigen) Vitamin D deficiency Right lower quadrant abdominal pain Pure hyperglyceridemia Other hyperlipidemia Numerous moles Nicotine dependence, unspecified, uncomplicated Internal hemorrhoids Essential (primary) hypertension BRBPR (bright red blood per rectum) Abdominal bloating Dysuria Hematuria Mixed hyperlipidemia HTN (hypertension) Erectile dysfunction Surgical History Surgical History Hx of total cystectomy No pertinent past surgical history Family History Family History Mother Family history of lung cancer Patient's mother is Father Patient's father is Social History Social History Smoking packs per day: 1 Smoking cigarettes per day: 20.0 Years smoked: 40 Smoking pack-years: 40.00 Smoking status: Current every day smoker Tobacco type: cigarettes Alcohol intake: current Drinks per week: 2 Alcohol use details: STOPPED DRINKING BEER, DRINKS WINE OR SHOTS OCCASIONALLY Substance use: never Substance use type: does not use Do You Feel Safe in your Home?: Yes Lack of Transportation: No Lack of Food: Never True Current Housing: Decline to Answer Concerned About Future Housing: Decline to Answer Difficulty Paying Gas/Electric Bills: Decline to Answer Difficulty Paying for Meds: Decline to Answer Currently Unemployed: Decline to Answer Education: Decline to Answer Difficulty w/ Childcare or Family Care: Decline to Answer Living arrangements: with family Spiritual care concerns: No Exam 2 Narrative: GENERAL: Well-appearing, well-nourished, and in no acute distress. HEAD: Normocephalic, atraumatic. EYES: PERRLA and EOMI. ENT: Nares clear, no rhinorrhea or epistaxis. Mucous membranes moist. Oropharynx without tonsillar hypertrophy exudate or other lesions. Bilateral TMs pearly shankar non-bulging NECK: Supple. No adenopathy or masses. No midline spinal tenderness CHEST: Clear to auscultation. No respiratory distress. No wheezes rales or rhonchi HEART: Regular rate and rhythm. No murmur heard. Normal peripheral pulses. ABDOMEN: Soft, nontender, nondistended, normal active bowel sounds. BACK: No midline spinal tenderness EXTREMITIES: Normal range of motion. No edema. SKIN: Warm, dry, no rash. NEURO: No focal deficits. Alert and oriented x3. PSYCH: Normal mood and affect Course Course Emergency Course: Patient updated on his workup and agrees with plan of care Vital Signs Vital signs: Vital Signs Temperature 98.4 F 03/09/25 20:28 Pulse Rate 97 03/09/25 20:28 Respiratory Rate 16 03/09/25 20:28 Blood Pressure 123/90 03/09/25 20:28 Pulse Oximetry 100 03/09/25 20:28 Oxygen Delivery Room Air 03/09/25 20:28 Temperature 98.4 F 03/09/25 20:28 Pulse Rate 80 03/10/25 00:00 Respiratory Rate 16 03/10/25 00:00 Blood Pressure 123/90 03/09/25 20:28 Pulse Oximetry 97 03/09/25 23:45 Oxygen Delivery Room Air 03/09/25 20:28 MDM - Fall MDM Narrative Medical decision making narrative: Patient presents emergency department after a fall today with left-sided rib/back pain. His vitals are stable. He is neurologically intact. He did not hit his head or lose consciousness. Contusions noted to the left forearm and ankle. X-rays are without acute osseous abnormalities. He does incidentally have a lytic lesion in his distal tibia. CT chest/abdomen/pelvis without pulmonary contusion or pneumothorax. No acute fractures. No traumatic visceral injury. Patient was updated on his workup and agrees with plan of care. He is to follow up with primary provider. He was given warnings to return to the ER Differential Diagnosis Differential diagnosis: Likely other (Spine fracture, rib fracture, rib contusion, intra-abdominal trauma, intrathoracic trauma) Lab Data Attestation: I reviewed the patient's lab results. 03/09/25 20:46 03/09/25 20:46 Labs: Lab Results 03/09/25 Range/Units 20:46 WBC 8.6 (4.5-10.0) K/mm3 RBC 4.30 L (4.6-6.20) M/mm3 Hgb 14.4 (14.0-18.0) g/dL Hct 43.6 (42.0-52.0) % MCV 101.4 H (80-100) fl MCH 33.5 (26-34) pg MCHC 33.0 (32-36) g/dl RDW 15.8 H (11.5-14.5) % Plt Count 158 (150-375) k/mm3 MPV 9.9 (7.4-10.4) fl Immature Gran % (Auto) 0.2 (0-0.5) % Neut % (Auto) 32.6 L (45.5-73.1) % Lymph % (Auto) 46.4 H (18.3-44.2) % [place] % (Auto) 5.9 (2.6-8.5) % Eos % (Auto) 13.7 H (0-4.4) % Baso % (Auto) 1.2 (0.2-1.2) % Lymph # (Auto) 4.00 H (0.9-3.2) K/mm3 [place] # (Auto) 0.5 (0.1-0.6) K/mm3 Eos # (Auto) 1.2 H (0-0.3) K/mm3 Baso # (Auto) 0.1 (0.0-0.1) K/mm3 Abs Immat Gran (auto) 0.02 (0.00-0.031) K/mm3 Absolute Neuts (auto) 2.8 (1.3-6.7) K/mm3 Absolute Nucleated RBC 0.000 (0.0-0.012) K/mm3 Nucleated RBC % 0.0 (0.0-0.2) % PT 13.8 (11.1-14.7) Seconds INR 1.1 APTT 23.9 (22.3-36.8) Seconds Sodium 135 L (137-145) mmol/L Potassium 3.1 L (3.4-5.0) mmol/L Chloride 110 H (98-107) mmol/L Carbon Dioxide 14 L (22-30) mmol/L Anion Gap 11 (4-12) mmol/L BUN 13 (9-20) mg/dL Creatinine 1.19 (0.7-1.3) mg/dL Estim Creat Clear Calc 61 ml/min Estimated GFR > 60 (59 - ) Glucose 129 H (65-110) mg/dL Calcium 9.5 (8.4-10.2) mg/dL Magnesium 2.1 (1.6-2.3) mg/dL Total Bilirubin 0.7 (0.2-1.3) mg/dL AST 69 H (17-59) U/L ALT 64 H (6-50) U/L Alkaline Phosphatase 90 (38-126) U/L Total Protein 8.2 (6.3-8.2) g/dL Albumin 4.4 (3.5-5.1) g/dL Imaging Data Radiologist's impression: CT chest/abdomen/pelvis: No pulmonary contusion pneumothorax. No acute fractures. No traumatic visceral injury. ITS Impressions Ankle X-Ray 03/09/25 21:54 IMPRESSION: No acute fracture or dislocation in the left ankle. 6 mm lytic lesion in the distal tibia, correlate for clinical history of multiple myeloma or metastatic disease. Consider bone scanning.. Forearm X-Ray 03/09/25 21:58 IMPRESSION: No acute osseous finding in the left forearm. Critical Care Time Critical Care Time Critical Care Time: No Discharge Plan Discharge Clinical Impression: Hypokalemia, Lytic lesion of bone on x-ray Closed rib fracture Qualifiers: Encounter type: initial encounter Rib fracture type: single rib Laterality: l eft Qualified Code(s): S22.32XA - Fracture of one rib, left side, initial encounter for closed fracture Patient Disposition: Home Condition: Stable Instructions: Rib Fracture (ED), Hypokalemia (ED) Additional Instructions: Return to the emergency department if you experience fever, chest pain, shortness of breath, abdominal pain with nausea and vomiting, weakness, numbness, or any other symptoms that are concerning to you. Rest. Ice to the area. Over the counter pain medication as needed. Prescribed pain medication as needed Follow up with your primary care doctor Incidentally the radiologist sees an abnormality at the end of your tibia for which he is recommending a bone scan Patient Language: Serbian Prescriptions: New hydrocodone-acetaminophen 5-325 mg tablet 1 tablet PO Q6H PRN (Reason: pain) Qty: 20 0RF No Action cholecalciferol (vitamin D3) 1,250 mcg (50,000 unit) capsule 1,250 mcg PO WEEKLY Qty: 12 3RF atenolol 50 mg tablet See Rx Instructions .ROUTE .COMPLEX Qty: 90 2RF Dose Instruction: TAKE 1 TABLET BY MOUTH EVERY DAY Rx Instructions: TAKE 1 TABLET BY MOUTH EVERY DAY Follow-up/Referrals: Glynn Cruz MD [Primary Care Provider] -
--- NOTE | 2025-03-09 21:57 | PC.NURSE ---
Patient taken to CT via stretcher while on monitor.
[2025-03-10] VITALS: PULSE 80; RESP 16
[2025-03-10] MEDS: HYDROcodone/acetaminophen (*CRX) 5-325 MG TABLET 1 TAB PO (00:02)
[2025-03-10] MEDS: POTASSIUM CHLORIDE 20 MEQ ER TABLET 40 MEQ PO (00:03)
== END 2025-03-10 00:26 | disposition home or self-care (01) ==
PROVIDERS: Emergency Provider Physician Assistant; PCP Emergency Medicine
DX: S22.32XA Fracture of one rib, left side, initial encounter for closed fracture (principal); E87.6 Hypokalemia; M89.9 Disorder of bone, unspecified; I10 Essential (primary) hypertension; E55.9 Vitamin D deficiency, unspecified; E78.2 Mixed hyperlipidemia; F17.210 Nicotine dependence, cigarettes, uncomplicated; Z86.0100 Personal history of colon polyps, unspecified; Z79.899 Other long term (current) drug therapy; W17.89XA Other fall from one level to another, initial encounter
CPT/HCPCS: 36415; 71260; 73090; 73610; 74177; 80053; 83735; 85025; 85610; 85730; 96374; 96375; 99284; A9270; J2270; J2405; Q9967

== ENCOUNTER 2025-04-09 09:51 | Outpatient (CLI) | payer BC, SELFPAY ==
--- OUTSIDE RECORDS SUMMARY | 2025-04-09 09:00 | XMS_ITS | Encounter Summary ---
Author Organization [facility] Address [address] [place] [address] Care Team Providers Care Bottle Label Inspector Name Role Phone Unavailable Primary Care Provider Unavailabl e Encounter Details Date Type Department Care Team (Late st Contact Info) Description 04/09/2025 9:00 AM CDT Office Visit [facility] Oncology and Hematology - [place] [address] [place] [address] Beatris Freeman MD [address] [place] [address] Social History Tobacco Use Types Packs/Day Years Used Date Smoking Tobacco: Every Day Cigarettes 0.5 40 Started: 04/09/1985 Smokeless Tobacco: Never Tobacco Cessation:Ready to Q uit: Not Asked; Counseling Given: Not Answered Alcohol Use Standard Drinks/Week Comments Yes 0 (1 standard drink = 0.6 oz pur e alcohol) Occasionally Sex and Gender Information Value Date Recorded Sex Assigned at Not on file Legal Sex Male 10:48 AM CDT Gender Identity Not on file Sexual Orientation Not on file documented as of this encounter Last Filed Vital Signs Vital Sign Reading Time Taken Comments Blood Pressure 130/92 04/09/2025 8:50 AM CDT Pulse 67 04/09/2025 8:48 AM CDT Temperature 36.5 C (97.7 F) 04/09/2025 8:48 AM CDT Respiratory Rate 15 04/09/2025 8:48 AM CDT Oxygen Saturation 98% 04/09/2025 8:48 AM CDT Inhaled Oxygen Concentration - - Weight 71.6 kg (157 lb 12.8 oz) 04/09/2025 8:48 AM CDT Height 188 cm (6' 2) 04/09/2025 8:48 AM CDT Body Mass Index 20.26 04/09/2025 8:48 AM CDT documented in this encounter Plan of Treatment Upcoming Encounters Date Type Department Care Team (Late st Contact Info) Description 05/06/2025 11:15 AM CDT Office Visit [facility] Oncology and Hematology [facility] [address] [facility] [address] [place] [address] Myron Coffey MD [address] [place] [address] documented as of this encounter Visit Diagnoses Not on filedocumented in this encounter
[2025-04-09 10:13] LABS: Hematocrit 45.3 % (42.0-52.0); Hemoglobin 14.9 g/dL (14.0-18.0); Immature Granulocyte Percent A 0.3 % (0-0.5); Lymphocytes Absolute Auto 2.27 K/mm3 (0.9-3.2); Mean Corpuscular HGB Conc 32.9 g/dl (32-36); Mean Corpuscular Hemoglobin 33.8 pg (26-34); Mean Corpuscular Volume 102.7 fl (80-100); Nucleated Red Blood Cells Absolute Auto 0.000 K/mm3 (0.0-0.012); Nucleated Red Blood Cells Perc 0.0 % (0.0-0.2); Platelet Count Result 181 k/mm3 (150-375); Red Blood Count 4.41 M/mm3 (4.6-6.20); White Blood Count 7.6 K/mm3 (4.5-10.0)
--- OUTSIDE RECORDS SUMMARY | 2025-04-09 10:14 | XMS_ITS | Clinical Summary ---
Author Organization [facility] Fadycat Morgan Address [address] [place] [address] Care Team Providers Care Client Care Specialist Name Role Phone Unavailable Primary Care Provider Unavailabl e Allergies No known active allergies Medications nitrofurantoin (MACROBID) 100 mg capsule Take 1 Capsule by mouth 2 times daily. 03/26/2025 Active atenoloL (TENORMIN) 50 mg tablet Take 50 mg by mouth daily. Active Encounters Date Type Department Care Team Description 04/09/2025 9:00 AM CDT Office Visit [facility] Oncology and Hematology [facility] [address] [place] [address] Beatris Freeman MD 04/09/2025 Orders Only [facility] Oncology and [facility] [address] [place] [address] Beatris Freeman MD Disorder of bone density and structure, unspecified (Primary Dx) from Last 3 Months Family History Medical History Relation Name Comments Lung Cancer Brother 1 No Known Problems Brother 2 No Known Problems Brother 3 No Known Problems Child 1 No Known Problems Child 2 No Known Problems Child 3 Melanoma Father Heart Disease Mother Lung Cancer Mother Brain Cancer Sister Relation Name Status Comments Brother 1 Brother 2 Alive Brother 3 Alive Child 1 Alive Child 2 Alive Child 3 Alive Father Mother Sister Social History Tobacco Use Types Packs/Day Years [...] Mass Index 20.26 04/09/2025 8:48 AM CDT Plan of Treatment Upcoming Encounters Date Type Department Care Team (Late st Contact Info) Description 05/06/2025 11:15 AM CDT Office Visit [facility] Oncology and Hematology - [place] [address] [facility] [address] [place] [address] Myron Coffey MD [address] [facility] [address] [place] [address] Health Maintenance Due Date Last Done Comments DTAP/TDAP/TD VACCINES (1 - Tdap) 1985 HEPATITIS B VACCINES (1 of 3 - 19+ 3-dose series) 01/12 COLORECTAL SCREENING 2011 Colorectal Cancer Screening 2011 FIT-DNA Q 3 years 2011 FIT/FOBT Q 1 year 2011 Flex Sig/CT Colonography Q 5 years 2011 Lung Cancer Screening 01/29/2016 ZOSTER VACCINE (1 of 2) 01/29/2016 Preventative Visit- Commercial 08/14/2024 INFLUENZA VACCINE (#1) 2025 Insurance [facility] BLUE ACCESS CHOICE [facility]
--- OUTSIDE RECORDS SUMMARY | 2025-04-09 10:14 | XMS_ITS | Clinical Summary ---
Author Organization [facility] Address [address] [place] [address] Care Team Providers Care Youth Corrections Officer Name Role Phone Glynn Cruz MD Primary Care Provide r Cr Holguin MD Unavailable [phone] Allergies No known active allergies Medications [...] or pharmacy Never 02/10/2023 Social Connection and Isolation Panel Answer Date Recorded In a typical week, how many times do you talk on the phone with family, friends, or neighbors? More than three times a week 12/27/2022 How often do you get togethe r with friends or relatives? Twice a week 12/27/2022 How often do you attend chur ch or nondenominational services? Never 12/27/2022 Do you belong to any clubs o r organizations such as zoroastrianism groups, unions, fraternal or athletic groups, or [...] (#1) 2025 Medical Devices Implanted Type Area Crematorium Operator Device Identifier Shelf Expiration Date Model / Serial / Lot [employer] Marito 7fr 80cm Open Tip Luer Lock Adapter Guidewire Graduate Straight Latex Free 160-210 - [id number] Implanted:Qty: 2 on 12/26/2022 by Cr Holguin MD at [facility] Stent Bilateral: Ureter [employer] Marito 09/07/2026 160-210 / / [id number] [employer] Weck Hem-O-Tata Ligate Nonabsorbable Cartridge Large Chevron Heart Latex Free [id number] - [id number] Implanted:Qty: 1 on 12/26/2022 by Cr Holguin MD at [facility] N/A: Pelvis [employer] [id number] / / [employer] Weck Hem-O-Tata Ligate Nonabsorbable Cartridge Large Chevron Heart Latex Free [id number] - [id number] Implanted:Qty: 1 on 12/26/2022 by Cr Holguin MD at [facility] N/A: Pelvis [employer] [id number] / / Insurance [employer] [place]ICE [employer] [place] [address] [employer] ACCESS CHOICE Advance Directives For more information, please contact: [phone] * Full Code (Latest Code Status on File) Date Activated Date Inactivated Comments 12/26/2022 6:44 PM 12/31/2022 5:01 PM Care Teams Youth Corrections Officer Relationship Specialty Start Date End Date Glynn Cruz MD [address] [place] [address] PCP - General Emergency Medicine 12/19/22 [place] [address] [place] [address] Consulting Physician Urology 12/31/22
--- OUTSIDE RECORDS SUMMARY | 2025-04-09 10:14 | XMS_ITS | Encounter Summary ---
Author Organization [facility] [employer] [facility] Address [address] [place] [address] Care Team Providers Care Leather Worker Name Role Phone Unavailable Primary Care Provider Unavailabl e Encounter Details Date Type Department Care Team (Late Contact Info) Description 04/09/2025 Orders Only [facility] Oncology and Hematology [facility] [address] [place] [address] Beatris Freeman MD [address] [place] [address] Disorder of bone density and structure, unspecified (Primary Dx) Social History Tobacco Use Types Packs/Day Years Used Date Smoking Tobacco: Every Day Cigarettes 0.5 40 Started: 04/09/1985 Smokeless Tobacco: Never Alcohol Use Standard Drinks/Week Comments Yes 0 (1 standard drink = 0.6 oz pur e alcohol) Occasionally Sex and Gender Information Value Date Recorded Sex Assigned at Not on file Legal Sex Male 10:48 AM CDT Gender Identity Not on file Sexual Orientation Not on file documented as of this encounter Plan of Treatment Upcoming Encounters Date Type Department Care Team (Late st Contact Info) Description 05/06/2025 11:15 AM CDT Office Visit [facility] Oncology and Hematology - [place] [address] [place] [address] Myron Coffey MD [address] [facility] [address] [place] [address] Scheduled Orders Name Type Priority Associated Diagnoses Orde r Schedule VITAMIN B12 AND FOLATE Lab Routine Disorder of bone density and structure, unspecified Expected: 04/09/2025, Expires: 04/09/2026 IRON, TIBC, AND PERCENT SATURATION Lab Routine Disorder of bone density and structure, unspecified Expected: 04/09/2025, Expires: 04/09/2026 PROTEIN ELECTROPHORESIS W/REFLEX,SERUM Lab Routine Disorder of bone density and structure, unspecified Expected: 04/09/2025, Expires: 04/09/2026 CBC WITH DIFFERENTIAL Lab Routine Disorder of bone density and structure, unspecified Expected: 04/09/2025, Expires: 04/09/2026 COMPREHENSIVE METABOLIC PANEL Lab Stat Disorder of bone density and structure, unspecified Expected: 04/09/2025, Expires: 04/09/2026 IMMUNOGLOBULINS IGG IGA IGM Lab Routine Disorder of bone density and structure, unspecified Expected: 04/09/2025, Expires: 04/09/2026 KAPPA/LAMBDA, FREE LIGHT CHAINS Lab Routine Disorder of bone density and structure, unspecified Expected: 04/09/2025, Expires: 04/09/2026 documented as of this encounter Visit Diagnoses Diagnosis Disorder of bone density and structure, unspecified- Primary documented in this encounter
[2025-04-09 11:15] LABS: Alanine Aminotransferase 74 U/L (6-50); Albumin Level 4.5 g/dL (3.5-5.1); Alkaline Phosphatase 145 U/L (38-126); Anion Gap 11 mmol/L (4-12); Aspartate Amino Transferase 111 U/L (17-59); Bilirubin,Total 0.6 mg/dL (0.2-1.3); Blood Urea Nitrogen 18 mg/dL (9-20); Calcium 9.5 mg/dL (8.4-10.2); Carbon Dioxide 17 mmol/L (22-30); Chloride 109 mmol/L (98-107); Estimated Glomerular Filt Rate > 60; Glucose 107 mg/dL (65-110); Iron 138 ug/dL (49-181); Potassium 4.3 mmol/L (3.4-5.0); Sodium 137 mmol/L (137-145); Total Protein 8.5 g/dL (6.3-8.2)
[2025-04-09 11:22] LABS: Immunoglobulin A 534 mg/dL (70-400); Immunoglobulin G 1314 mg/dL (700-1600); Immunoglobulin M 88 mg/dL (40-230)
[2025-04-09 11:25] LABS: Percent Iron Saturation 39 % (20-50)
[2025-04-09 12:26] LABS: Vitamin B12 176.0 pg/mL (239-931)
[2025-04-10 16:08] LABS: Free Lambda Lt Chains, Serum 21.3 mg/L (5.7-26.3); Kappa/Lambda Ratio, Serum 1.30 (0.26-1.65)
[2025-04-11 14:08] LABS: Albumin 3.8 g/dL (2.9-4.4); Alpha-1-Globulin 0.2 g/dL (0.0-0.4); Alpha-2-Globulin 1.0 g/dL (0.4-1.0); Gamma Globulin 1.1 g/dL (0.4-1.8)
== END 2025-04-09 09:52 | disposition home or self-care (01) ==
LOC: ANHLAB 09:52
PROVIDERS: PCP Emergency Medicine; Visit Provider Internal Medicine
DX: D64.9 Anemia, unspecified (principal); M85.9 Disorder of bone density and structure, unspecified
CPT/HCPCS: 36415; 80053; 82607; 82746; 82784; 83521; 83540; 83550; 84155; 84165; 85025

== ENCOUNTER 2025-05-13 12:37 | Outpatient (CLI) | payer BC, SELFPAY ==
--- NOTE | ~2025-05-13 | PE_ITS ---
EXAMINATION: PET skull to mid thigh DATE: 05/13/2025 15:20 INDICATION: Lytic lesion at the left tibia on prior radiographs. TECHNIQUE: Blood glucose level was 95 mg/dL. 9.061 mCi of 18-fluorodeoxyglucose (18-FDG) was administered i.v. Low dose computed tomography (CT) images were acquired from the base of the brain to the proximal thighs for attenuation correction and anatomic localization. Positron emission tomography (PET) images were acquired in the same distribution beginning 58 minutes after injection. Images including fused PET/CT images were reconstructed in axial, coronal, and sagittal planes. Automated exposure control technique was employed. The dose- length product was 1070.09mGy-cm. COMPARISON: CT chest, abdomen and pelvis dated 03/09/2025 FINDINGS: Head/neck: There is symmetric increased activity in the oral cavity, palatine tonsils, laryngeal muscles and ocular muscles without CT correlate, likely physiologic. No pathologically enlarged cervical lymphadenopathy or suspicious foci of increased FDG uptake in the visualized head or neck. Chest: Mild emphysema. No suspicious pulmonary nodules, pneumonia, pulmonary edema or pleural effusion. Heart size is normal. No pericardial effusion. Fusiform aneurysm of the ascending thoracic aorta measuring up to 4.5 cm in maximal diameter. No pathologically enlarged or FDG avid thoracic lymphadenopathy. Abdomen/pelvis/proximal thighs: Physiologic renal accumulation and excretion of FDG activity in the kidneys, bladder and along portions of ureters. Normal degree and heterogenous pattern of increased uptake throughout the liver without radiologic correlate or dominant FDG avid lesion. The gallbladder, pancreas, spleen and bilateral adrenal glands are normal. Mild uptake scattered throughout the bowels without radiologic correlate, also likely physiologic. No other abnormal foci of increased FDG uptake or pathologically enlarged lymphadenopathy in the abdomen, pelvis or proximal thighs. Musculoskeletal: Mild increased uptake and interval development of callus formation associated with several now subacute healing left-sided rib fractures including the posterior left 10th and 11th and 12th ribs and the lateral left 9th, 10th and 11th ribs. There is mild diffuse increased uptake along the bilateral abductor longus muscle bellies without radiologic correlate which is likely physiologic. Mild uptake overlying the bilateral greater trochanters consistent with mild trochanteric bursitis. There is a subtle small lytic lesion involving the cortex at the posterior lateral aspect of the distal left tibial metaphysis without evident FDG uptake. No other suspicious lytic, blastic or abnormally FDG avid bone lesions. Tiny focus of mild uptake along the skin surface at the proximal right forearm without radiologic correlate likely related to skin contamination. IMPRESSION: 1. No abnormal FDG uptake associated with a nonspecific very small lytic lesion at the posterolateral metaphyseal region of the distal left tibia. 2. Mild uptake associated with a few healing subacute left rib fractures likely related to fall for which CT scan was obtained on 03/09/2025. No other suspicious lytic, blastic or abnormally FDG avid bone lesions. 3. Fusiform ascending thoracic aortic aneurysm measuring up to 4.5 cm. Reviewed, dictated and finalized at location A. IMPRESSION: 1. No abnormal FDG uptake associated with a nonspecific very small lytic lesion at the posterolateral metaphyseal region of the distal left tibia. 2. Mild uptake associated with a few healing subacute left rib fractures likely related to fall for which CT scan was obtained on 03/09/2025. No other suspicio us lytic, blastic or abnormally FDG avid bone lesions. 3. Fusiform ascending thoracic aortic aneurysm measuring up to 4.5 cm.
--- OUTSIDE RECORDS SUMMARY | 2025-05-13 12:43 | XMS_ITS | Clinical Summary ---
Author Organization [facility] Address [address] [place] [address] Care Team Providers Care Tool Drawing Checker Name Role Phone Glynn Cruz MD Primary Care Provide r Cr Holguin MD Unavailable [phone] Allergies No known active allergies Medications [...] often do you attend chur ch or sabianism services? Never 12/27/2022 Do you belong to any clubs o r organizations such as amish groups, unions, fraternal or athletic groups, or [...] (#1) 2025 Medical Devices Implanted Type Area Board Operator Device Identifier Shelf Expiration Date Model / Serial / Lot [employer] Marito 7fr 80cm Open Tip Luer Lock Adapter Guidewire Graduate Straight Latex Free 160-210 - [id number] Implanted:Qty: 2 on 12/26/2022 by Cr Holguin MD at [facility] Stent Bilateral: Ureter [employer] Marito 09/07/2026 160-210 / / [id number] [employer] Weck Hem-O-Tata Ligate Nonabsorbable Cartridge Large Chevron Heart Latex Free [id number] - [id number] Implanted:Qty: 1 on 12/26/2022 by Cr Holguin MD at [facility] N/A: Pelvis [employer] [id number] / / [employer] Weck Hem-O-Tata Ligate Nonabsorbable Cartridge Large Chevron Heart Latex Free [id number] - [id number] Implanted:Qty: 1 on 12/26/2022 by Cr Holguin MD at [facility] N/A: Pel[employer] [id number] / / Insurance [employer] CHO[employer] [place] [address] AN[employer] ACCESS CHOICE Advance Directives For more information, please contact: [phone] * Full Code (Latest Code Status on File) Date Activated Date Inactivated Comments 12/26/2022 6:44 PM 12/31/2022 5:01 PM Care Teams Tool Drawing Checker Relationship Specialty Start Date End Date Glynn Cruz MD [address] [place] [address] PCP - General Emergency Medicine 12/19/22 [place] [id number] [place] [address] Consulting Physician Urology 12/31/22
--- OUTSIDE RECORDS SUMMARY | 2025-05-13 12:43 | XMS_ITS | Clinical Summary ---
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 03/26/2025 Active atenoloL (TENORMIN) 50 mg tablet Take 50 mg by mouth daily. Active Active Problems No known active problems Encounters Date Type Department Care Team Description 05/06/2025 11:15 AM CDT Office Visit [facility] Oncology and Hematology [facility] [address] [place] [address] Myron Coffey MD Lytic lesion of bone on x-ray (Primary Dx); Anemia due to vitamin B12 deficiency, unspecified B12 deficiency type 04/16/2025 External Device Data STL ABSTRACTION Provider, Abstract 04/15/2025 External Device Data STL ABSTRACTION Provider, Abstract 04/15/2025 External Device Data STL ABSTRACTION Provider, Abstract 04/09/2025 9:00 AM CDT Office Visit [facility] Oncology and Hematology [facility] [address] [facility] [place] [address] Beatris Freeman MD Lytic lesion of bone on x-ray (Primary Dx) 04/09/2025 Orders Only [facility] Oncology and [facility] [address] [facility] [place] [address] Beatris Freeman MD Disorder of bone density [...] Date Smoking Tobacco: Every Day Cigarettes 0.5 40.1 Started: 04/09/1985 Smokeless Tobacco: Never Tobacco Cessation:Ready to Q uit: No; Counseling Given: Not Answered Alcohol Use Standard Drinks/Week Comments Yes 0 (1 standard drink = 0.6 oz pur e alcohol) Occasionally Sex and Gender Information Value Date Recorded Sex Assigned at Not on file Legal Sex Male 10:48 AM CDT Gender Identity Not on file Sexual Orientation Not on file Last Filed Vital Signs Vital Sign Reading Time Taken Comments Blood Pressure 139/94 05/06/2025 11:28 AM CDT Pulse 86 05/06/2025 11:25 AM CDT Temperature 36.6 C (97.8 F) 05/06/2025 11:25 AM CDT Respiratory Rate 12 05/06/2025 11:2 5 AM CDT Oxygen Saturation 96% 05/06/2025 11: 28 AM CDT Inhaled Oxygen Concentration - - Weight 70.7 kg (155 lb 12.8 oz) 025 11:25 AM CDT Height 188 cm (6' 2) 04/09/2025 8:48 AM CDT Body Mass Index 20 04/09/2025 8:48 AM CDT Plan of Treatment Upcoming Encounters Date Type Department Care Team (Late st Contact Info) Description 05/20/2025 4:30 PM CDT Telephone Check Up [facility] Oncology and Hematology - [place] [address] [facility] [address] [place] [address] Myron Coffey MD [address] [facility] [address] [place] [address] Health Maintenance Due Date Last Done Comments DTAP/TDAP/TD VACCINES (1 - Tdap) 1985 HEPATITIS B VACCINES (1 of 3 - 19+ 3-dose series) 01/12 COLORECTAL SCREENING 2011 Colorectal Cancer Screening 2011 FIT-DNA Q 3 years 2011 FIT/FOBT Q 1 year 2011 Flex Sig/CT Colonography Q 5 years 2011 Lung Cancer Screening 01/29/2016 ZOSTER VACCINE (1 of 2) 01/29/2016 INFLUENZA VACCINE (#1) 2025 [place] [address] [facility] [employer] CHOICE Care Teams Film Processing Shift Supervisor Relationship Specialty Start Date End Date Glynn Cruz MD [address] [place] [id number] PCP - General Internal Medicine 05/06/25
== END 2025-05-13 12:38 | disposition home or self-care (01) ==
PROVIDERS: PCP Emergency Medicine; Visit Provider Internal Medicine Hematology & Oncology
DX: M89.8X6 Other specified disorders of bone, lower leg (principal); I71.21 Aneurysm of the ascending aorta, without rupture; S22.42XD Multiple fractures of ribs, left side, subsequent encounter for fracture with routine healing; X58.XXXD Exposure to other specified factors, subsequent encounter
CPT/HCPCS: 78815; A9552